=== PATIENT | female | born 1955 | race Hispanic/Latino ===

== ENCOUNTER 2020-01-29 06:45 | Day surgery (SDC) | payer SELFPAY ==
[~2020-01-29 06:45] MED LIST: BAYER ASPIRIN E81 MG PO; CENTRUM SILVER ULTRA PO; CHOLESTEROL MED; D32000 UNIT PO; FISH OIL; FISH OIL1000 MG PO; TRAZODONE50 MG PO
[2020-01-29] MEDS ORDERED: VIT A & D PO (07:04)
[2020-01-29 09:21] VITALS: BP 101/55
--- NOTE | 2020-01-29 14:14 | NUR ---
PER PHYSICIAN; VERBAL COLONOSCOPY RESULTS REVIEWED WITH PATIENT, PATIENT VERBALIZED UNDERSTANDING, ADVISED TO REPEAT PROCEDURE X 5 YEARS OR SOONER IF NEEDED AND INTAKE HIGH FIBER DIET FOR PREVENTATIVE, PATIENT AGREED. NO CONCERNS VOICED AT THIS TIME. NOTES FORWARDED TO PRIMARY CARE FOR CONTINUITY OF CARE.
== END 2020-01-29 09:33 | disposition home or self-care (01) | DRG 951 ==
LOC: ENDO 06:45 → ORM 08:00 → ENDO 09:33
PROVIDERS: ATTEND Surgery
PROC: 0DJD8ZZ Inspection of Lower Intestinal Tract, Via Natural or Artificial Opening Endoscopic (ICD-10-PCS; principal; 2020-01-29)
DX: Z12.11 Encounter for screening for malignant neoplasm of colon (principal); K57.30 Diverticulosis of large intestine without perforation or abscess without bleeding; K64.8 Other hemorrhoids; Z86.010 Personal history of colon polyps; Z20.828 Contact with and (suspected) exposure to other viral communicable diseases